=== PATIENT | male | born 1960 | race Hispanic/Latino ===

== ENCOUNTER 2017-05-10 15:12 | Emergency (ER) | payer OTHER ==
[~2017-05-10] VITALS: Ht 175.3 cm; Wt 103.0 kg
[~2017-05-10 15:12] MED LIST: RENA-VITE TABL0.8 MG PO; RENAGEL800 MG PO; SIMVASTATIN80 MG PO
--- NOTE | 2017-05-10 17:37 | Diagnostic Imaging Report ---
PROCEDURE:L-SPINE COMPLETE COMPARISON:None. INDICATIONS:RIGHT LEG WEAKNESS, RIGHT KNEE WEAKNESS FINDINGS: There are 5 lumbar-type vertebral bodies. The vertebral bodies are well-aligned without evidence of spondylolisthesis. There are no fractures, lytic or blastic lesions. Multilevel degenerative disc changes predominantly at L2-L3, L3-L4, with bridging osteophytes. Facet hypertrophy. L5-S1. Vertebral body heights are well-preserved. The sacroiliac joints are unremarkable. Extensive atherosclerotic calcification of the abdominal aorta. CONCLUSION: No acute abnormalities. Degenerative disc changes, predominantly L2-L3, and L3-L4. Facet hypertrophy. L5-S1. Jair Lauren M.D. Dictated by: Jair Lauren M.D. on 05/10/2017 at 17:46 Electronically approved by: Jair Lauren M.D. on 05/10/2017 at 17:46
--- NOTE | 2017-05-10 17:39 | Diagnostic Imaging Report ---
PROCEDURE:X-RAY RIGHT KNEE, THREE OR MORE VIEWS COMPARISON:None. INDICATIONS:RIGHT KNEE WEAKNESS FINDINGS: Normal mineralization. No acute displaced fracture or dislocation. Minimal degenerative changes, with tiny patellar osteophyte. Joint spaces are relatively well-preserved.. Thin linear calcification in the medial femoral tibial joint space likely reflects chondrocalcinosis. No suprapatellar effusion. CONCLUSION: No acute abnormalities. Minimal degenerative changes in the right knee. Chondrocalcinosis. Jair Lauren M.D. Dictated by: Jair Lauren M.D. on 05/10/2017 at 17:47 Electronically approved by: Jair Lauren M.D. on 05/10/2017 at 17:47
[2017-05-10 18:32] LABS: ALBUMIN 4.1 g/dL (3.5-5.0); ALBUMIN/GLOBULIN RATIO 0.9 (0.8-2.0); ANION GAP 19.3 mmol/L (8-16); CALCIUM 10.7 mg/dL (8.4-10.2); CREATININE, SERUM 8.65 mg/dL (0.72-1.25); MAGNESIUM 2.5 MG/DL (1.3-2.1); POTASSIUM 4.3 mmol/L (3.5-5.1)
== END 2017-05-10 20:23 | disposition home or self-care (01) ==
LOC: ER 15:12
DX: R20.2 Paresthesia of skin (principal); R53.1 Weakness; M25.561 Pain in right knee; M54.16 Radiculopathy, lumbar region; R26.2 Difficulty in walking, not elsewhere classified
CPT/HCPCS: 36415; 72110; 80053; 83735; 84311; 99284

== ENCOUNTER 2017-09-05 09:49 | Emergency (ER) | payer OTHER ==
[~2017-09-05] VITALS: Ht 172.7 cm; Wt 104.3 kg
--- OUTSIDE RECORDS SUMMARY | 2017-09-05 09:51 | XMS REPORT ---
Author Author [facility] Address Unknown Phone Unavailable Care Team Providers Care Interdisciplinary Professor Name Role Phone DAVID ABREU Unavailable Unavailable Problems This patient has no known problems. Allergies, Adverse Reactions, Alerts This patient has no known allergies or adverse reactions. Medications This patient has no known medications. Results Test Description Test Time Test Comments Text Results Atomic Results Result Comments SP LUMBAR, COMPLETE MIN 4VW [place] [address] Patient Name: MARY ALICE DAI MR #: [id number] : 1960 Age/Sex: 57/M Req #: [id number] [facility] Physician: Ordered by: DAVID ABREU MD Report #: [id number] Location: ER Room/Bed: Procedure: [id number] DX/SP LUMBAR, COMPLETE MIN 4VW Exam Date: 05/10/17 Exam Time: 1710 REPORT STATUS: Signed PROCEDURE: L-SPINE COMPLETE COMPARISON: None. INDICATIONS: RIGHT LEG WEAKNESS, RIGHT KNEE WEAKNESS FINDINGS: There are 5 lumbar-type vertebral bodies. The vertebral bodies are well-aligned without evidence of spondylolisthesis. There are no fractures, lytic or blastic lesions. Multilevel degenerative disc changes predominantly at L2-L3, L3-L4, with bridging osteophytes. Facet hypertrophy. L5-S1. Vertebral body heights are well-preserved. The sacroiliac joints are unremarkable. Extensive atherosclerotic calcification of the abdominal aorta. CONCLUSION: No acute abnormalities. Degenerative disc changes, predominantly L2-L3, and L3- L4. Facet hypertrophy. L5-S1. Andres Barnes M.D. Dictated by: Andres Barnes M.D. on 05/10/2017 at 17:46 Electronically approved by : Andres Barnes M.D. on 05/10/2017 at 17:46 Dictated By: ANDRES BARNES MD 45 Transcribed By: TIMI on 05/10/171745 COPY TO: DAVID ABREU MD KNEE RIGHT THREE VIEWS [place] [address] Patient Name: MARY ALICE DAI MR #: [id number] : 1960 Age/Sex: 57/M Req #: [id number] Adm Physician: Ordered by: DAVID ABREU MD Report #: [id number] Location: ER Room/Bed: Procedure: [id number] DX/KNEE RIGHT THREE VIEWS Exam Date: 05/10/17 Exam Time: 1710 REPORT STATUS: Signed PROCEDURE: X- RAY RIGHT KNEE, THREE OR MORE VIEWS COMPARISON: None. INDICATIONS : RIGHT KNEE WEAKNESS FINDINGS: Normal mineralization. No acute displaced fracture or dislocation. Minimal degenerative changes, with tiny patellar osteophyte. Joint spaces are relatively well-preserved.. Thin linear calcification in the medial femoral tibial joint space likely reflects chondrocalcinosis. No suprapatellar effusion. CONCLUSION: No acute abnormalities. Minimal degenerative changes in the right knee. Chondrocalcinosis. Andres Barnes M.D. Dictated by: Andres Barnes M.D. on 05/10/2017 at 17:47 Electronically approved by: Andres Barnes M.D. on 05/10/2017 at 17:47 Dictated By: ANDRES BARNES MD 46 Transcribed By: TIMI on 05/10/171746 COPY TO: DAVID ABREU MD
--- NOTE | 2017-09-05 11:11 | Diagnostic Imaging Report ---
PROCEDURE:KNEE LEFT THREE VIEWS TECHNIQUE:AP, lateral and oblique views left knee INDICATION:Fall COMPARISON:None. FINDINGS: Left knee is intact. Joint space narrowing most predominant in the medial compartment with meniscal chondrocalcinosis. Small suprapatellar joint effusion. CONCLUSION: 1. Small effusion without evidence of fracture or traumatic malalignment. 2. Mild osteoarthritis. Chondrocalcinosis suggesting CPPD. Dictated by: Jadon Howell M.D. on 09/05/2017 at 11:13 Electronically approved by: Jadon Howell M.D. on 09/05/2017 at 11:13
[2017-09-05 11:50] VITALS: BP 133/85
== END 2017-09-05 12:00 | disposition home or self-care (01) ==
LOC: ER 09:49
DX: S61.501A Unspecified open wound of right wrist, initial encounter (principal); S80.02XA Contusion of left knee, initial encounter; S80.212A Abrasion, left knee, initial encounter; S80.01XA Contusion of right knee, initial encounter; M25.461 Effusion, right knee; S83.411A Sprain of medial collateral ligament of right knee, initial encounter; W01.198A Fall on same level from slipping, tripping and stumbling with subsequent striking against other object, initial encounter; Y93.E8 Activity, other personal hygiene; Y92.000 Kitchen of unspecified non-institutional (private) residence as the place of occurrence of the external cause
CPT/HCPCS: 99283

== ENCOUNTER 2018-01-13 07:02 | Emergency (ER) | payer OTHER ==
[~2018-01-13] VITALS: Ht 172.7 cm; Wt 104.3 kg
[2018-01-13] MEDS ORDERED: SENSIPAR30 MG PO (07:22)
[2018-01-13] MEDS ORDERED: VITAMIN B-121000 MCG PO (07:22)
[2018-01-13] MEDS ORDERED: AMBIEN10 MG PO (07:22)
[2018-01-13] MEDS ORDERED: HYDROCODONE/APAP 7.5MG-325MG 1 EA TAB PO STA (07:27)
[2018-01-13] MEDS ORDERED: ORPHENADRINE CITRATE 30 MG/ML VIAL IM ONE (07:30)
--- NOTE | 2018-01-13 08:59 | Diagnostic Imaging Report ---
EXAMINATION: RIBS UNILAT W/CXR INDICATION: \S\RIGHT SCAPULAR PAIN S/P FELL AGAINST WALL 2 D AGO COMPARISON: None FINDINGS: TUBES and LINES: None. LUNGS: Lungs are well inflated. Lungs are clear. There is no evidence of pneumonia or pulmonary edema. PLEURA: No pleural effusion or pneumothorax. HEART AND MEDIASTINUM: The cardiomediastinal silhouette is unremarkable. BONES AND SOFT TISSUES: No acute osseous lesion. Soft tissues are unremarkable. UPPER ABDOMEN: No free air under the diaphragm. IMPRESSION: No acute thoracic abnormality. No fractures. Signed by: Dr. Darrin Sterling M.D. on 01/13/2018 8:55 AM
[2018-01-13 09:09] VITALS: BP 135/81
== END 2018-01-13 09:16 | disposition home or self-care (01) ==
LOC: ER 07:02
DX: S29.012A Strain of muscle and tendon of back wall of thorax, initial encounter (principal); W22.01XA Walked into wall, initial encounter; Y93.01 Activity, walking, marching and hiking; Y92.008 Other place in unspecified non-institutional (private) residence as the place of occurrence of the external cause; I12.0 Hypertensive chronic kidney disease with stage 5 chronic kidney disease or end stage renal disease; E11.22 Type 2 diabetes mellitus with diabetic chronic kidney disease; N18.6 End stage renal disease; Z99.2 Dependence on renal dialysis; I25.10 Atherosclerotic heart disease of native coronary artery without angina pectoris; I25.2 Old myocardial infarction; Z85.47 Personal history of malignant neoplasm of testis
CPT/HCPCS: 71101; 99283; J2360

== ENCOUNTER 2018-01-17 13:49 | Emergency (ER) | payer OTHER ==
[~2018-01-17] VITALS: Ht 172.7 cm; Wt 104.3 kg
[~2018-01-17 13:49] MED LIST changes: +AMBIEN10 MG PO; +SENSIPAR30 MG PO; +VITAMIN B-121000 MCG PO
[2018-01-17 14:18] LABS: BASOPHILS % 0.3 % (0.0-1.0); EOSINOPHILS # (AUTO) 0.3 (0.0-0.4); EOSINOPHILS % 2.2 % (0.0-6.0); HEMATOCRIT 26.8 % (38.2-49.6); HEMOGLOBIN 8.7 g/dL (14.0-18.0); LYMPHOCYTES # (AUTO) 1.2 (1.0-3.2); LYMPHOCYTES % 9.4 % (18.0-39.1); MEAN CORPUSCULAR HEMOGLOBIN 31.8 pg (28-32); MEAN CORPUSCULAR HGB CONC 32.5 g/dL (31-35); MEAN CORPUSCULAR VOLUME 97.8 fL (81-99); MONOCYTES % 7.9 % (4.4-11.3); NEUTROPHILS # (AUTO) 9.8 (2.1-6.9); NEUTROPHILS % 78.6 % (38.7-80.0); PLATELET COUNT 536 x10e3/uL (140-360); RED BLOOD COUNT 2.74 x10e6/uL (4.3-5.7); RED CELL DISTRIBUTION WIDTH 14.2 % (11.7-14.4)
[2018-01-17 14:29] LABS: ALBUMIN 2.9 g/dL (3.5-5.0); ALBUMIN/GLOBULIN RATIO 0.6 (0.8-2.0); ANION GAP 20.2 mmol/L (8-16); CALCIUM 10.9 mg/dL (8.4-10.2); CREATININE, SERUM 7.38 mg/dL (0.72-1.25); POTASSIUM 4.2 mmol/L (3.5-5.1)
[2018-01-17 14:36] LABS: CREATINE KINASE MB 1.2 ng/mL (0-5.0)
[2018-01-17 14:55] LABS: INR 1.13; PROTHROMBIN TIME 13.6 seconds (11.9-14.5)
[2018-01-17 14:56] LABS: PARTIAL THROMBOPLASTIN TIME 32.9 seconds (23.8-35.5)
--- NOTE | 2018-01-17 15:16 | Diagnostic Imaging Report ---
A single frontal view of the chest. HISTORY: Chest pain COMPARISON: Chest radiograph November 02, 2015 DISCUSSION: Portable technique, limits sensitivity of the exam. Soft tissue attenuation partially limits sensitivity of the exam. Overlying monitoring leads. Tubes/Lines: None Lungs and pleura: Low lung volumes result in bibasilar vascular crowding, accentuation of the pulmonary interstitial markings, central pulmonary vasculature, and the cardiac silhouette. Allowing for these limitations, the findings are as follows: Minimal peripheral left basilar atelectasis versus interval development of scarring. No evidence of a consolidative pneumonia or pulmonary alveolar edema. Persistent eventration versus elevation of the left hemidiaphragm. No definite pleural effusion or pneumothorax is identified. Heart and mediastinum: The cardiomediastinal silhouette appears unremarkable. Bones: No acute osseous lesion is identified, given this limited exam. IMPRESSION: 1. Minimal left basilar atelectasis versus scarring. 2. Persistent eventration versus elevation of the left hemidiaphragm. 3. No consolidative pneumonia or pulmonary alveolar edema. Signed by: Dr. Griffin Uribe D.O., M.M.M. on 01/17/2018 3:12 PM
[2018-01-17 16:25] VITALS: BP 120/76
== END 2018-01-17 16:28 | disposition home or self-care (01) ==
LOC: ER 13:49
DX: R07.89 Other chest pain (principal); S29.012A Strain of muscle and tendon of back wall of thorax, initial encounter; R05 Cough
CPT/HCPCS: 36415; 71045; 80053; 82550; 82553; 83880; 84484; 85025; 85610; 85730; 93005; 99284